=== PATIENT | male | born 1970 | race Caucasian/White ===

== ENCOUNTER 2022-09-15 19:08 | Emergency (ER) | payer SELFPAY ==
[~2022-09-15] VITALS: Ht 172.7 cm; Wt 100.0 kg
[2022-09-15 19:09] VITALS: BP 175/78
[2022-09-15 20:54] LABS: BASOPHILS % 0.6 % (0.0-2.0); EOSINOPHILS % 0.4 % (0.0-5.0); HEMATOCRIT. 47.1 % (42.0-52.0); HEMOGLOBIN. 16.1 g/dL (14.0-18.0); LYMPHOCYTES % 19.8 % (20.0-50.0); MEAN CORPUSCULAR HEMOGLOBIN 31.3 pg (28.0-32.0); MEAN CORPUSCULAR VOLUME 91.5 fL (80.0-94.0); MEAN PLATELET VOLUME 8.3 fl (7.4-10.4); MONOCYTES % 10.6 % (2.0-8.0); NEUTROPHILS % 68.6 % (40.0-76.0); PLATELET 225 x1000/uL (130-400); RED BLOOD CELL COUNT 5.15 mill/uL (4.7-6.1); RED CELL DISTRIBUTION WIDTH 12.8 % (11.6-14.6)
[2022-09-15 20:58] LABS: CHLORIDE 100 mEq/L (98-107)
[2022-09-15 21:07] LABS: ETHANOL BLOOD < 10 mg/dL
== END 2022-09-16 02:26 | disposition home or self-care (01) ==
LOC: ER 19:14
DX: R00.2 Palpitations (principal)
CPT/HCPCS: 36415; 71045; 80053; 80320; 84484; 85025; 93005; 99285; G0480